=== PATIENT | male | born 1955 | race Hispanic/Latino ===

== ENCOUNTER 2021-08-17 19:39 | Inpatient (IN) | payer OTHER ==
[~2021-08-17] VITALS: Ht 170.2 cm; Wt 78.9 kg
[2021-08-17 20:17] LABS: HEMATOCRIT 47.9 % (42-54); MEAN CORPUSCULAR HEMOGLOBIN 31.4 pg (27.0-33.0); MEAN CORPUSCULAR HGB CONC 34.9 g/dL (32.0-36.0); PLATELET COUNT (AUTO) 232 K/uL (130-400); RED BLOOD CELL COUNT(AUTO) 5.32 MIL/uL (4.50-6.20); RED CELL DISTRIBUTION WIDTH 11.9 % (11.0-15.5); WHITE BLOOD COUNT (AUTO) 11.2 K/uL (4.8-10.8)
[2021-08-17 20:20] LABS: POTASSIUM 3.6 mmol/L (3.5-5.1)
[2021-08-17 20:29] LABS: ALBUMIN 4.2 g/dL (3.5-5.0); BILIRUBIN,TOTAL 1.4 mg/dL (0.2-1.0); TOTAL PROTEIN, SERUM 8.4 g/dL (6.0-8.3)
[2021-08-17 20:37] LABS: BAND NEUTROPHILS % (MANUAL) 1 % (0-2); BASOPHILS % (MANUAL) 1 % (0-2); LYMPHOCYTES % (MANUAL) 24 % (22-44); MAN.DIFF COMMENT-IMPRESSION MANUAL DIFFERENTIAL; MONOCYTES % (MANUAL) 8 % (2-9); REACTIVE LYMPHOCYTES 1 % (0-0); SEGMENTED NEUTROPHILS % 65 % (40-70)
[2021-08-17 20:38] LABS: PLATELET MORPHOLOGY COMMENT ADEQUATE
[2021-08-17 22:55] LABS: APPEARANCE,URINE Cloudy (CLEAR); BILIRUBIN,URINE Small (NEGATIVE); COLOR,URINE Dark Yellow (YELLOW); GLUCOSE, URINE (UA) 250 mg/dL (NEGATIVE); KETONES,URINE 40 mg/dL (NEGATIVE); LEUKOCYTE ESTERASE ,URINE Negative (NEGATIVE); NITRATE,URINE Negative (NEGATIVE); OCCULT BLOOD,URINE Negative (NEGATIVE); PROTEIN,URINE POS 1+ mg/dL (NEGATIVE); UROBILINOGEN,URINE 0.2 mg/dL (0.2-1.0)
[2021-08-17 22:59] LABS: MAGNESIUM 2.5 mg/dL (1.80-2.40)
[2021-08-17 23:12] LABS: INR 1.17 (0.85-1.15); PROTHROMBIN TIME 12.6 SEC (9.6-11.6)
[2021-08-17 23:13] LABS: PARTIAL THROMBOPLASTIN TIME 29.5 SEC (26.3-35.5)
[2021-08-17] MEDS ORDERED: LACTATED RINGERS 1000ML 1,000 ML IV ONE (23:14)
[2021-08-17] MEDS ORDERED: ONDANSETRON 4MG INJ IVP PRN (23:30)
[2021-08-17] MEDS ORDERED: ACETAMINOPHEN 325 MG TAB PO PRN (23:30)
[2021-08-17 23:35] LABS: BACTERIA,URINE Rare /HPF (None Seen); MUCUS,URINE Moderate LPF (None Seen); RBC,URINE None Seen /HPF (0-1); SQUAMOUS EPITHELIAL CELL,UR Moderate /HPF (0-2)
[2021-08-18] VITALS (43 sets, daily range): BP systolic 114–156; BP diastolic 57–138
[2021-08-18] MEDS ORDERED: MORPHINE 2 MG SYG IVP PRN (00:30)
[2021-08-18] MEDS ORDERED: PHARMACY COMMUNICATION MISC PRN (01:00)
[2021-08-18] MEDS ORDERED: LORAZEPAM 2 MG/ML 1 ML VIAL IVP PRN (01:00)
[2021-08-18] MEDS ORDERED: CHLORDIAZEPOXIDE HCL 25 MG CAP PO PRN (01:00)
[2021-08-18] MEDS: LACTATED RINGERS 1000ML 1,000 ML IV SCH ×4 (01:22→22:20)
[2021-08-18 01:27] LABS: AMPHET/METH SCREEN,URINE NEGATIVE (NEGATIVE); BARBITURATE SCREEN, URINE NEGATIVE (NEGATIVE); BENZODIAZEPINES SCREEN,URINE NEGATIVE (NEGATIVE); CANNABINOID SCREEN,URINE NEGATIVE (NEGATIVE); COCAINE SCREEN,URINE NEGATIVE (NEGATIVE); OPIATE SCREEN,URINE NEGATIVE (NEGATIVE); PHENCYCLIDINE SCREEN,URINE NEGATIVE (NEGATIVE)
[2021-08-18] MEDS ORDERED: THROMBIN-JMI 20000 UNIT KIT TP ONE (06:53)
[2021-08-18] MEDS ORDERED: BUPIVACAINE/EPI/PF 0.25% 30ML VIAL IJ ONE (06:53)
[2021-08-18] MEDS ORDERED: PROPOFOL 10 MG/ML 20ML VIAL IV ONE (06:56)
[2021-08-18] MEDS ORDERED: DEXAMETHASONE SOD PHOSPHATE 10MG/ML 1ML VIAL ONE ×2 (06:56→07:49)
[2021-08-18] MEDS ORDERED: SUCCINYLCHOLINE CHLORIDE 20 MG/ML 10 ML VIAL ONE (06:56)
[2021-08-18] MEDS ORDERED: LIDOCAINE PF 100MG/5ML (2%) SYRINGE 5ML ONE (06:56)
[2021-08-18] MEDS ORDERED: GLYCOPYRROLATE 1 MG/5 ML SYRINGE ONE (06:57)
[2021-08-18] MEDS ORDERED: NEOSTIGMINE 5MG/5ML SYR IV ONE (06:57)
[2021-08-18] MEDS ORDERED: ONDANSETRON 4MG INJ ONE (06:57)
[2021-08-18] MEDS ORDERED: MIDAZOLAM HCL 1 MG/ML 2ML VIAL ONE (06:57)
[2021-08-18] MEDS ORDERED: FENTANYL CITRATE PF 50 MCG/1 ML 2ML VIAL ONE (06:58)
[2021-08-18] MEDS ORDERED: ROCURONIUM 10MG/1ML SYR 10 MG/ML ML ONE (06:58)
[2021-08-18] MEDS ORDERED: CEFAZOLIN SODIUM 1 GM VIAL ONE (07:07)
[2021-08-18] MEDS: CEFAZOLIN SODIUM 1 GM VIAL ONE ×2 (07:30→07:54)
[2021-08-18 09:24] LABS: BASOPHILS % (AUTO) 0.8 % (0.0-5.0); EOSINOPHILS % (AUTO) 1.5 % (0.0-8.0); HEMATOCRIT 44.1 % (42-54); LYMPHOCYTES % (AUTO) 16.6 % (21.0-51.0); MEAN CORPUSCULAR HGB CONC 33.6 g/dL (32.0-36.0); MEAN CORPUSCULAR VOLUME 92.3 fL (79-99); MONOCYTES % (AUTO) 3.4 % (3.0-13.0); NEUTROPHILS % (AUTO) 77.4 % (40.0-77.0); PLATELET COUNT (AUTO) 150 K/uL (130-400); RED BLOOD CELL COUNT(AUTO) 4.78 MIL/uL (4.50-6.20); RED CELL DISTRIBUTION WIDTH 11.9 % (11.0-15.5); WHITE BLOOD COUNT (AUTO) 8.8 K/uL (4.8-10.8)
[2021-08-18 09:43] LABS: ALBUMIN 3.4 g/dL (3.5-5.0); BILIRUBIN,TOTAL 0.8 mg/dL (0.2-1.0); CREATININE 0.9 mg/dL (0.5-1.5); POTASSIUM 3.4 mmol/L (3.5-5.1); TOTAL PROTEIN, SERUM 6.9 g/dL (6.0-8.3)
[2021-08-18] MEDS: THIAMINE HCL 100 MG/ML 2ML VIAL IVP SCH (10:08)
[2021-08-18] MEDS ORDERED: THIAMINE HCL 100 MG/ML 2ML VIAL IVP SCH (12:30)
[2021-08-18] MEDS ORDERED: BENZOCAINE/MENTH/CETYLPYRD CL 1 EACH LOZENGE MM PRN (14:30)
[2021-08-18] MEDS: FOLIC ACID 1 MG TABLET PO SCH (14:49)
[2021-08-18] MEDS: MULTIVITAMIN TABLET PO SCH (14:49)
[2021-08-18] MEDS: PANTOPRAZOLE 40 MG/VIAL IVP SCH (17:39)
[2021-08-18] MEDS: IPRATROPIUM 0.5 MG/2.5 ML INH IH SCH ×2 (18:47→23:27)
[2021-08-19] VITALS (21 sets, daily range): BP systolic 103–146; BP diastolic 45–74
[2021-08-19] MEDS: LACTATED RINGERS 1000ML 1,000 ML IV SCH ×3 (04:07→17:06)
[2021-08-19 04:35] LABS: BASOPHILS % (AUTO) 0.2 % (0.0-5.0); HEMATOCRIT 42.2 % (42-54); LYMPHOCYTES % (AUTO) 12.8 % (21.0-51.0); MEAN CORPUSCULAR HEMOGLOBIN 31.9 pg (27.0-33.0); MEAN CORPUSCULAR HGB CONC 35.5 g/dL (32.0-36.0); MEAN CORPUSCULAR VOLUME 89.8 fL (79-99); MONOCYTES % (AUTO) 6.3 % (3.0-13.0); NEUTROPHILS % (AUTO) 80.2 % (40.0-77.0); PLATELET COUNT (AUTO) 163 K/uL (130-400); RED CELL DISTRIBUTION WIDTH 11.5 % (11.0-15.5); WHITE BLOOD COUNT (AUTO) 10.4 K/uL (4.8-10.8)
[2021-08-19 05:04] LABS: BILIRUBIN,TOTAL 0.7 mg/dL (0.2-1.0); CREATININE 0.6 mg/dL (0.5-1.5); POTASSIUM 3.8 mmol/L (3.5-5.1); TOTAL PROTEIN, SERUM 6.5 g/dL (6.0-8.3)
[2021-08-19] MEDS: IPRATROPIUM 0.5 MG/2.5 ML INH IH SCH ×4 (06:49→23:27)
[2021-08-19] MEDS: MULTIVITAMIN TABLET PO SCH (08:59)
[2021-08-19] MEDS: PANTOPRAZOLE 40 MG/VIAL IVP SCH (08:59)
[2021-08-19] MEDS: THIAMINE HCL 100 MG/ML 2ML VIAL IVP SCH (08:59)
[2021-08-19] MEDS: FOLIC ACID 1 MG TABLET PO SCH (08:59)
[2021-08-20] VITALS (7 sets, daily range): BP systolic 111–143; BP diastolic 62–76
[2021-08-20 04:08] LABS: HEMATOCRIT 40.8 % (42-54); MEAN CORPUSCULAR HEMOGLOBIN 31.4 pg (27.0-33.0); MEAN CORPUSCULAR HGB CONC 34.1 g/dL (32.0-36.0); MEAN CORPUSCULAR VOLUME 92.1 fL (79-99); RED BLOOD CELL COUNT(AUTO) 4.43 MIL/uL (4.50-6.20); RED CELL DISTRIBUTION WIDTH 11.6 % (11.0-15.5); WHITE BLOOD COUNT (AUTO) 7.7 K/uL (4.8-10.8)
[2021-08-20 04:21] LABS: CREATININE 0.9 mg/dL (0.5-1.5); POTASSIUM 3.8 mmol/L (3.5-5.1)
[2021-08-20] MEDS: LACTATED RINGERS 1000ML 1,000 ML IV SCH ×3 (05:50→14:20)
[2021-08-20] MEDS: IPRATROPIUM 0.5 MG/2.5 ML INH IH SCH ×4 (06:37→23:34)
[2021-08-20] MEDS: FOLIC ACID 1 MG TABLET PO SCH (08:06)
[2021-08-20] MEDS: PANTOPRAZOLE 40 MG/VIAL IVP SCH (08:06)
[2021-08-20] MEDS: MULTIVITAMIN TABLET PO SCH (08:06)
[2021-08-20] MEDS: THIAMINE HCL 100 MG/ML 2ML VIAL IVP SCH (08:10)
[2021-08-21 03:00] VITALS: BP 151/74
[2021-08-21 03:42] LABS: HEMATOCRIT 39.2 % (42-54); MEAN CORPUSCULAR HEMOGLOBIN 31.7 pg (27.0-33.0); MEAN CORPUSCULAR HGB CONC 34.9 g/dL (32.0-36.0); MEAN CORPUSCULAR VOLUME 90.7 fL (79-99); RED BLOOD CELL COUNT(AUTO) 4.32 MIL/uL (4.50-6.20); RED CELL DISTRIBUTION WIDTH 11.7 % (11.0-15.5); WHITE BLOOD COUNT (AUTO) 6.2 K/uL (4.8-10.8)
[2021-08-21 04:04] LABS: CREATININE 0.8 mg/dL (0.5-1.5); POTASSIUM 3.4 mmol/L (3.5-5.1)
[2021-08-21] MEDS: IPRATROPIUM 0.5 MG/2.5 ML INH IH SCH ×2 (07:12→11:34)
[2021-08-21] MEDS ORDERED: KCL 20 MEQ ERTAB PO ONE (08:44)
[2021-08-21 08:48] VITALS: BP 132/81
[2021-08-21] MEDS: LACTATED RINGERS 1000ML 1,000 ML IV SCH (09:50)
[2021-08-21] MEDS: PANTOPRAZOLE 40 MG/VIAL IVP SCH (09:50)
[2021-08-21] MEDS: MULTIVITAMIN TABLET PO SCH (09:51)
[2021-08-21] MEDS ORDERED: POTASSIUM CHLORIDE 10% ELIXIR 20 MEQ/15 ML UDCUP PO SCH (10:00)
[2021-08-21] MEDS ORDERED: LACTATED RINGERS 1000ML IV SCH (10:30)
[2021-08-21 12:15] VITALS: BP 143/73
== END 2021-08-21 15:15 | disposition home or self-care (01) | DRG 25 ==
LOC: EDH 19:39 → EDHIP 23:21 → 2CH 08-18 03:23 → 2AH 08-19 23:05
PROVIDERS: ADMIT Hospitalist; ATTEND Hospitalist
PROC: 00940ZZ Drainage of Intracranial Subdural Space, Open Approach (ICD-10-PCS; principal; 2021-08-18 07:28)
DX: S06.5X0A Traumatic subdural hemorrhage without loss of consciousness, initial encounter (principal); G93.6 Cerebral edema; E87.1 Hypo-osmolality and hyponatremia; M62.82 Rhabdomyolysis; R17 Unspecified jaundice; Z20.822 Contact with and (suspected) exposure to COVID-19; F17.210 Nicotine dependence, cigarettes, uncomplicated; E83.41 Hypermagnesemia; F10.10 Alcohol abuse, uncomplicated; Y90.9 Presence of alcohol in blood, level not specified; W18.39XA Other fall on same level, initial encounter; Y93.89 Activity, other specified; Y92.098 Other place in other non-institutional residence as the place of occurrence of the external cause; Y99.8 Other external cause status
CPT/HCPCS: 36415; 70450; 71045; 73080; 80048; 80053; 80305; 81001; 82550; 83735; 84484; 85025; 85027; 85610; 85730; 87635; 93005; 94640; 94664; 97039; 99291; A4344; C1713; C9113; C9803; G0378; J0330; J0690; J1100; J2001; J2250; J2405; J2704; J2710; J3010; J3411; J3490; J7120